=== PATIENT | female | born 1945 ===

== ENCOUNTER 2016-12-08 06:49 | Day surgery (SDC) | payer MEDICARE, MEDICAID ==
[~2016-12-08] VITALS: Ht 154.9 cm; Wt 65.8 kg
[2016-12-08] VITALS (8 sets, daily range): BP systolic 114–127; BP diastolic 47–61
[2016-12-08] MEDS: Gatifloxacin Opth Solution 0.5% RIGHT EYE SCH ×3 (06:00→06:10)
[~2016-12-08 06:49] MED LIST: Pred Forte 1% Opth Susp 1ml RIGHT EYE SCH
[2016-12-08] MEDS ORDERED: BSS 500ml btl ONE (06:53)
[2016-12-08] MEDS ORDERED: Maxitrol Opth Oint 3.5gm ONE (06:55)
[2016-12-08] MEDS ORDERED: Tetracaine 0.5% Opth Soln ONE (06:55)
[2016-12-08] MEDS ORDERED: Dexamethasone 4mg/ml vial ONE (06:55)
--- NOTE | 2016-12-08 06:55 | Anethesia Preoperative Eval ---
Anesthesia Pre-op PMH/ROS General Date of Evaluation: Dec 08, 2016 Time of Evaluation: 10:06 Anesthesiologist: beba ASA Score: ASA 2 Mallampati Score Class I : Soft palate, uvula, fauces, pillars visible Class II: Soft palate, uvula, fauces visible Class III: Soft palate, base of uvula visible Class IV: Only hard plate visible Mallampati Classification: Class II Surgeon: keyonna Diagnosis: macular hole Surgical Procedure: pars plana vitrectomy righy eye Social History: smoking - non-smoker Family History: no anesthesia problems Allergies: Coded Allergies: Cultivated Oat Pollen (Verified Allergy, Intermediate, 12/08/16) watery nose, coughing Medications: see eMAR Past Medical History Gastrointestinal/Genitourinary: Reports: GERD Neurologic/Psychiatric: Reports: depression/anxiety Musculoskeletal/Integumentary: Reports: OA, other - back pain, acoustic neuroma , ALTAGRACIA PSxH Narrative: acoustic, neuroma, altagracia, Anesthesia Pre-op Phys. Exam Physician Exam Last Vital Signs Date Time Temp Pulse Resp B/P Pulse Ox O2 Delivery O2 Flow Rate FiO2 12/08/16 07:56 97.6 61 18 114/61 98 Room Air Constitutional: NAD Neurologic: CN 2-12 intact Cardiovascular: RRR Respiratory: CTA Gastrointestinal: S/NT/ND Airway Exam Mallampati Score: Class II MO: full Neck: supple TMD: 2fb ROM: full Teeth: intact Anesthesia Pre-op A/P Labs Labs Test 12/08/16 07:50 White Blood Count 5.2 K/UL (4.8-10.8) Red Blood Count 4.44 M/UL (4.20-5.40) Hemoglobin 12.3 G/DL (12.0-16.0) Hematocrit 36.5 % (37.0-47.0) Mean Corpuscular Volume 82 FL (80-99) Mean Corpuscular Hemoglobin 27.6 PG (27.0-31.0) Mean Corpuscular Hemoglobin Concent 33.6 G/DL (32.0-36.0) Red Cell Distribution Width 12.3 % (11.6-14.8) Platelet Count 162 K/UL (150-450) Mean Platelet Volume 8.5 FL (6.5-10.1) Neutrophils (%) (Auto) 51.7 % (45.0-75.0) Lymphocytes (%) (Auto) 35.6 % (20.0-45.0) Monocytes (%) (Auto) 8.2 % (1.0-10.0) Eosinophils (%) (Auto) 2.9 % (0.0-3.0) Basophils (%) (Auto) 1.6 % (0.0-2.0) Sodium Level 140 mEQ/L (135-145) Potassium Level 4.2 mEQ/L (3.4-4.9) Chloride Level 100 mEQ/L (98-107) Carbon Dioxide Level 24 mEQ/L (20-30) Anion Gap 16 (5-15) Blood Urea Nitrogen 16 mg/dL (7-23) Creatinine 0.7 mg/dL (0.5-0.9) Estimat Glomerular Filtration Rate > 60 mL/min (>60) Glucose Level 96 mg/dL (74-106) Calcium Level 9.1 mg/dL (8.6-10.2) Risk Assessment & Plan Assessment: macular hole right eye Plan: pPars plana vitrectomy right eye Status Change Before Surgery: No Pre-Antibiotics Drug: HENRIQUE Naqvi Dec 08, 2016 06:55
[2016-12-08] MEDS ORDERED: Kenalog-10 5ml Inj ONE ×2 (06:56→10:45)
[2016-12-08] MEDS ORDERED: Bupivacaine 0.75% 30ml vial INJ ONE (06:57)
[2016-12-08] MEDS ORDERED: EPINEPHrine 1mg/1ml Amp ONE (06:57)
[2016-12-08] MEDS ORDERED: Lidocaine 2% MPF 5ml Vial INJ ONE (06:57)
[2016-12-08] MEDS ORDERED: BSS 15ml BTL ONE (06:57)
[2016-12-08] MEDS ORDERED: Sodium Hyaluronate 10 mg/ml 0.85ml ONE (06:57)
[2016-12-08] MEDS ORDERED: Povidone-Iodine 5% opth solution ONE (06:58)
[2016-12-08] MEDS ORDERED: LR 1000ml 1,000 ML IV SCH (07:00)
[2016-12-08] MEDS ORDERED: Gatifloxacin Opth Solution 0.5% ONE (07:15)
--- NOTE | 2016-12-08 07:15 | Pre-op HX & Phy Repo 2 SIG ---
DATE OF ADMISSION: 12/07/2016 DATE OF SURGERY: 12/08/2016. PREOPERATIVE DIAGNOSIS: Macular hole, right eye. BRIEF NOTE: This is a first [facility] admission for this patient, who is a very nice 71-year-old lady, who complained of decreased vision in the right eye for roughly six weeks and possibly longer. The patient had cataract surgery done on the right eye in October 2016 and was not totally satisfied with the level of visual recovery. On examination, she was found to have a macular hole, likely pre-existing. She is admitted for surgery. PAST MEDICAL HISTORY: Remarkable for previous acoustic neuroma, which was operated in 2011. ALLERGIES: She has no allergies. SOCIAL HISTORY: She does not smoke or drink. PHYSICAL EXAMINATION: HEENT: Best vision at the time of admission was 20/200 in the right eye and 20/50 in the left with pressures of 11. The anterior segments were quiet. There is a posterior chamber lens, well-positioned in the right. The left showed a moderate nuclear cataract. Funduscopic exam is to the right eye showed a moderate epiretinal membrane as well as stage IV macular hole. 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 No hole was seen. ASSESSMENT: Stage IV macular hole, right eye with overlying epiretinal membrane. PLAN: The plan is to perform a pars plana vitrectomy with ILM membrane peeling on the right consistent with ICG. A gas fluid exchange will also be performed. Endolaser will be done as needed. The risks and benefits of surgery were gone over the patient with potential for infection, hemorrhage, glaucoma, and remote possibility of loss of the eye. The risk of anesthesia was discussed. The patient understands and consents to the surgery, which will be performed tomorrow morning. Willem Garcia M.D. DR: OMID JOB#: [id number] CC:
[2016-12-08] MEDS ORDERED: Phenylephrine 2.5% Op Soln ONE (07:16)
[2016-12-08] MEDS ORDERED: Cyclopentolate 1% Opth Sol ONE (07:16)
[2016-12-08] MEDS ORDERED: Flurbiprofen 0.03% Opth Sol 2.5ml ONE (07:16)
[2016-12-08] MEDS: Cyclopentolate 1% Opth Sol RIGHT EYE SCH ×3 (07:30→07:52)
[2016-12-08] MEDS: Phenylephrine 2.5% Op Soln RIGHT EYE SCH ×3 (07:30→07:52)
[2016-12-08] MEDS: Flurbiprofen 0.03% Opth Sol 2.5ml RIGHT EYE SCH ×3 (07:30→07:52)
[2016-12-08] MEDS ORDERED: TRAMADOL HCL50 MG ORAL (07:43)
[2016-12-08] MEDS ORDERED: ZETIA10 MG ORAL (07:43)
[2016-12-08] MEDS ORDERED: ASPIR 8181 MG ORAL (07:43)
[2016-12-08] MEDS ORDERED: GABAPENTIN300 MG ORAL (07:43)
[2016-12-08] MEDS ORDERED: LEXAPRO10 MG ORAL (07:43)
[2016-12-08] MEDS ORDERED: FOSAMAX70 MG ORAL (07:43)
[2016-12-08] MEDS ORDERED: NEXIUM40 MG ORAL (07:43)
[2016-12-08] MEDS ORDERED: TRAZODONE HCL50 MG ORAL (07:44)
[2016-12-08 07:58] LABS: BASOPHILS % (AUTO) 1.6 % (0.0-2.0); EOSINOPHILS % (AUTO) 2.9 % (0.0-3.0); LYMPHOCYTES % (AUTO) 35.6 % (20.0-45.0); MEAN CORPUSCULAR HEMOGLOBIN 27.6 PG (27.0-31.0); MEAN CORPUSCULAR HGB CONC 33.6 G/DL (32.0-36.0); MEAN CORPUSCULAR VOLUME 82 FL (80-99); MEAN PLATELET VOLUME 8.5 FL (6.5-10.1); MONOCYTES % (AUTO) 8.2 % (1.0-10.0); NEUTROPHILS % (AUTO) 51.7 % (45.0-75.0); PLATELET COUNT 162 K/UL (150-450); RED BLOOD COUNT 4.44 M/UL (4.20-5.40); RED CELL DISTRIBUTION WIDTH 12.3 % (11.6-14.8); WHITE BLOOD COUNT 5.2 K/UL (4.8-10.8)
[2016-12-08 08:14] LABS: ANION GAP 16 (5-15); CALCIUM 9.1 mg/dL (8.6-10.2); CARBON DIOXIDE 24 mEQ/L (20-30); CHLORIDE 100 mEQ/L (98-107); CREATININE 0.7 mg/dL (0.5-0.9); GLOMERULAR FILTRATION RATE > 60 mL/min (>60); HEMOLYSIS 14; POTASSIUM 4.2 mEQ/L (3.4-4.9); SODIUM 140 mEQ/L (135-145)
[2016-12-08] MEDS ORDERED: Indocyanine Green 25mg Inj INJ ONE (08:30)
[2016-12-08] MEDS ORDERED: LR 1000ml 1,000 ML IVLG SCH (10:58)
[2016-12-08] MEDS ORDERED: DiphenhydrAMINE 50mg/ml Inj IVP PRN (11:00)
[2016-12-08] MEDS ORDERED: Midazolam 2mg/2ml Inj IVP PRN (11:00)
[2016-12-08] MEDS ORDERED: Atropine Inj 1mg/10ml Syr IV PRN (11:00)
[2016-12-08] MEDS ORDERED: Hydromorphone 0.5mg/0.5ml inj IVP PRN (11:00)
--- NOTE | 2016-12-08 11:29 | Pre-Procedure Note/Attestation ---
Pre-Procedure Note/Attestation Complete Prior to Procedure Planned Procedure: right Procedure Narrative: PPV, ICG assisted peel, Gas-Fluid exchange R eye Indications for Procedure Pre-Operative Diagnosis: Macular Hole R eye Attestation I attest that I discussed the nature of the procedure; its benefits; risks and complications; and alternatives (and the risks and benefits of such alternatives ), prior to the procedure, with the patient (or the patient's legal security systems sales representative). I attest that, if there was a reasonable possibility of needing a blood transfusion, the patient (or the patient's legal security systems sales representative) was given the [facility] standardized written summary, pursuant to the [place] Blood Safety Act ([place] Health and Safety Code # 1645, as amended). I attest that I re-evaluated the patient just prior to the surgery and that there has been no change in the patient's H&P, except as documented below: SHY HARRISON Dec 08, 2016 11:29
--- NOTE | 2016-12-08 11:32 | Brief Operative Note ---
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
[2016-12-08] MEDS ORDERED: Norco 5mg/325mg tab ORAL PRN (11:45)
--- NOTE | 2016-12-08 12:23 | Immediate Post-Op Evaluation ---
Immediate Post-Op Evalulation Immediate Post-Op Evalulation Procedure: pars plana vitrectomy Date of Evaluation: Dec 08, 2016 Time of Evaluation: 11:40 IV Fluids: lr 350 Blood Products: none Estimated Blood Loss: negligible Urinary Output: 0 Blood Pressure Systolic: 120 Blood Pressure Diastolic: 51 Pulse Rate: 58 Respiratory Rate: 17 O2 Sat by Pulse Oximetry: 100 Temperature (Fahrenheit): 97.6 Pain Score (1-10): 0 Nausea: No Vomiting: No Complications none Patient Status: awake, reacts, patent Hydration Status: adequate Drug: HENRIQUE Naqvi Dec 08, 2016 12:23
--- NOTE | 2016-12-08 12:25 | 48 Hour Post Anesthesia Eval ---
Post Anesthesia Evaluation Procedure: pars plana vitrectomy Date of Evaluation: Dec 08, 2016 Time of Evaluation: 11:50 Blood Pressure Systolic: 123 0: 63 Pulse Rate: 78 Respiratory Rate: 16 Temperature (Fahrenheit): 97.6 O2 Sat by Pulse Oximetry: 99 Airway: patent Nausea: No Vomiting: No Pain Intensity: 0 Hydration Status: adequate Cardiopulmonary Status: stable Mental Status/LOC: patient returned to baseline Post-Anesthesia Complications: none Follow-up care needed: N/A HENRIQUE KAN Dec 08, 2016 12:25
--- NOTE | 2016-12-08 17:15 | Operative Note - Dictated ---
DATE OF OPERATION: 12/08/2016 PREOPERATIVE DIAGNOSIS: Macular hole, right eye. POSTOPERATIVE DIAGNOSIS: Macular hole, right eye with peripheral lattice degeneration with holes. PROCEDURES PERFORMED: 1. Pars plana vitrectomy. 2. ICG-assisted membrane peel. 3. Endolaser. 4. Gas fluid exchange, right eye. SURGEON: Willem Garcia M.D. MOBILE SALES CONSULTANT: None. ANESTHESIA: Local sedation. ANESTHESIOLOGIST: Vale Dockery M.D. JUSTIFICATION FOR SURGERY: This 71-year-old lady underwent cataract surgery, but noted persistent diminution of vision. She was found to have a macular pucker with a stage IV central hole. BRIEF NOTE: The patient was brought to the operating room, placed on operating room table in supine position. After a time-out was performed and agreed upon by the staff and initial monitoring secured by Dr. Dockery, retrobulbar and Van Lint blocks given in the standard way. When the blocks taken effect, she was prepped and draped in the normal manner. A lid speculum was inserted into the right eye. Using a 23-gauge trocar system, cannulas were placed in all except infranasal quadrant. Infusion secured inferotemporally. Vitrectomy was begun posterior to the lens implant. A central core vitrectomy was done followed by peripheral vitrectomy leaving a small vitreous skirt. The posterior hyaloid was gently engaged with suction over the nerve, elevated, and removed. Using a posterior viewing lens ICG, two drops were used to stain the posterior segment where the membrane was noted. This was immediately flushed from the eye using end dripping forceps. The membrane was engaged slightly nasal to the macula and gently peeled away and elevated in an area roughly 3 disc diameters in size. No problems were encountered. The macula was noted to be clean and without traction. Scleral depression was done and an area of lattice degeneration was noted at the 8 o'clock position with what appeared to be small round holes. The endolaser was brought into the eye and this area was surrounded with 3 rows of laser without complication. No other peripheral breaks were seen. An air-fluid exchange was then performed followed by a gas exchange using 24% mixture of SF6. The eye was left normotensive and superior cannulas were removed and each sclerotomy closed with 8-0 Vicryl suture. The infusion cannula was removed and this wound was noted to be self-sealing not requiring a suture. Subconjunctival Decadron and gentamicin were then injected inferiorly and prednisolone, atropine, gatifloxacin, and Maxitrol drops were instilled. The eye was patched and shielded and the patient was taken to recovery in excellent condition to initiate face-down positioning. Willem Garcia M.D. DR: JUAN CARLOS JOB#: [id number] CC: Willem Garcia M.D.; Fax#: [phone]
== END 2016-12-08 12:55 | disposition home or self-care (01) ==
LOC: SUR 06:49
DX: H35.341 Macular cyst, hole, or pseudohole, right eye (principal); H35.371 Puckering of macula, right eye; K21.9 Gastro-esophageal reflux disease without esophagitis; G62.9 Polyneuropathy, unspecified; F32.9 Major depressive disorder, single episode, unspecified; F41.9 Anxiety disorder, unspecified; M54.9 Dorsalgia, unspecified; M19.90 Unspecified osteoarthritis, unspecified site; Z86.69 Personal history of other diseases of the nervous system and sense organs; Z90.710 Acquired absence of both cervix and uterus
CPT/HCPCS: 36415; 67042; 80048; 85025; 93005; J0171; J1100; J3301; J3470; J3490; 94003; 94150